=== PATIENT | female | born 1995 | race Caucasian/White ===

== ENCOUNTER 2018-04-16 21:37 | Emergency (ER) | payer OTHER ==
[2018-04-16 21:52] VITALS: BP 128/65
--- NOTE | 2018-04-16 21:55 | UC ---
Hand/Wrist HPI - HPI Summary HPI Summary: 22-year-old woman comes to clinic today with a chief complaint of left wrist injury. 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 Pain is worse in the distal ulna area. Denies other injuries. The injury was splinted. No sensation deficit no laceration. - History Of Current Complaint Chief Complaint: UCUpperExtremity Stated Complaint: LEFT ARM INJURY Time Seen by Provider: 04/16/18 21:49 Hx Last Menstrual Period: 03/25/18-04/01/18 Pain Intensity: 6 - Allergies/Home Medications Allergies/Adverse Reactions: Allergies Allergy/AdvReac Type Severity Reaction Status Date / Time No Known Allergies Allergy Verified 04/16/18 21:46 Home Medications: Home Medications NK [No Home Medications Reported] 04/16/18 [History Confirmed 04/16/18] PMH/Surg Hx/FS Hx/Imm Hx Previously Healthy: Yes - Surgical History Surgical History: None - Family History Known Family History: Positive: Non-Contributory - Social History Alcohol Use: Rare Substance Use Type: None Smoking Status (MU): Never Smoked Tobacco Review of Systems All Other Systems Reviewed And Are Negative: Yes Constitutional: Positive: Negative Skin: Positive: Negative Eyes: Positive: Negative ENT: Positive: Negative Respiratory: Positive: Negative Cardiovascular: Positive: Negative Gastrointestinal: Positive: Negative Motor: Positive: Negative Neurovascular: Positive: Negative Musculoskeletal: Positive: Other: - see hpi Neurological: Positive: Negative Psychological: Positive: Negative Is Patient Immunocompromised?: No Physical Exam Triage Information Reviewed: Yes Appearance: Well-Appearing, No Pain Distress, Well-Nourished Vital Signs: Initial Vital Signs Temp 97.8 F 04/16/18 21:46 Pulse 97 04/16/18 21:46 Resp 16 04/16/18 21:46 BP 128/65 04/16/18 21:46 Pulse Ox 100 04/16/18 21:46 Vital Signs Reviewed: Yes Eye Exam: Normal Eyes: Positive: Conjunctiva Clear Neck exam: Normal Neck: Positive: Supple Respiratory: Positive: No respiratory distress Musculoskeletal: Positive: Other: - Left wrist is tender in the distal ulnar distribution. Normal radial pulses normal capillary refill no sensation deficit. Pain with range of motion of the wrist. Neurological Exam: Normal Neurological: Positive: Alert, Muscle Tone Normal Psychological Exam: Normal Psychological: Positive: Age Appropriate Behavior Skin Exam: Normal Hand/Wrist Course/Dx - Course Course Of Treatment: I discussed the x-rays with the orthopedist on-call Dr. Hunt and also with the patient. Dr. Hunt's concern is that there is a fracture in the wrist on the ulnar aspect. My evaluation of the x-ray it appears that the pisiform is dislocated. Radiologist reading is pending. Placed the patient and a sugar tong splint and she is neurovascularly intact after placement of splint. Eating a sling and she will be following up with orthopedics on Thursday, April 19, 2018. She's to get reevaluated sooner if she has any problems with loss of circulation or numbness or pain or any other concerns. - Differential Dx/Diagnosis Provider Diagnosis: Left wrist fracture Discharge - Sign-Out/Discharge Documenting (check all that apply): Patient Departure All imaging exams completed and their final reports reviewed: No - Discharge Plan Condition: Stable Disposition: HOME Patient Education Materials: Wrist Fracture in Adults (ED) Referrals: No Primary Care Phys,NOPCP [Primary Care Provider] - Abraham Coughlin MD [Medical Doctor] - Additional Instructions: FOLLOW UP WITH ORTHOPEDICS ON 04/19/18. GET RECHECKED FOR ANY WORSENING OF YOUR CONDITION OR QUESTIONS OR CONCERNS. - Billing Disposition and Condition Condition: STABLE Disposition: Home
--- NOTE | 2018-04-17 12:09 | UC ---
- Progress Note Progress Note: Official xray report: "IMPRESSION: Inferiorly displaced as a form with question of a pisiform fracture. Follow-up exam is suggested." -note reviewed - Dr Luis Alberto quintero frx, spoke with ortho special education administrator. sugar tong splint and FU with ortho on Thursday. Course/Dx - Diagnoses Provider Diagnoses: Left wrist fracture Discharge - Sign-Out/Discharge Documenting (check all that apply): Post-Discharge Follow Up All imaging exams completed and their final reports reviewed: Yes - Discharge Plan Condition: Stable Disposition: HOME Patient Education Materials: Wrist Fracture in Adults (ED) Referrals: Abraham Coughlin MD [Medical Doctor] - No Primary Care Phys,NOPCP [Primary Care Provider] - Additional Instructions: FOLLOW UP WITH ORTHOPEDICS ON 04/19/18. GET RECHECKED FOR ANY WORSENING OF YOUR CONDITION OR QUESTIONS OR CONCERNS. - Billing Disposition and Condition Condition: STABLE Disposition: Home
== END 2018-04-16 22:37 | disposition home or self-care (01) ==
LOC: UCCORT 21:37
DX: S62.102A Fracture of unspecified carpal bone, left wrist, initial encounter for closed fracture (principal); W22.8XXA Striking against or struck by other objects, initial encounter; Y93.22 Activity, ice hockey; Y92.330 Ice skating rink (indoor) (outdoor) as the place of occurrence of the external cause
CPT/HCPCS: 99202; G0463